=== PATIENT | female | born 1980 | race Caucasian/White ===

== ENCOUNTER 2016-05-21 04:45 | Inpatient (IN) | payer OTHER ==
[2016-05-21] VITALS (25 sets, daily range): BP systolic 89–136; BP diastolic 54–84
[~2016-05-21] VITALS: Ht 165.1 cm; Wt 77.3 kg
[~2016-05-21 04:45] MED LIST: BIRTH CONTROL PILL; ENDOCET 5-3251 EACH PO; IBUPROFEN800 MG PO; PRENATAL TABLE1 EAC3 PO
[2016-05-21 09:43] LABS: EOSINOPHIL (%) 0.3 % (0-5); HEMATOCRIT 35.8 % (36.0-46.0); IMMATURE GRANULOCYTE (%) 0.4 % (0.0-0.7); IMMATURE GRANULOCYTE COUNT 0.1 K/uL; INSTRUMENT ABS NEUTROPHIL CT 8.7 K/uL; LYMPHOCYTE COUNT 2.1 K/uL (1.0-2.8); MCH 26.6 PG (29.0-34.0); MCHC 33.2 G/DL (30.0-36.0); MCV 80.1 FL (83-99); MEAN PLAT.VOLUME 10.5 uM^3 (9.5-12.4); MONOCYTE (%) 4.5 % (3-12); MONOCYTE COUNT 0.5 K/uL (0-0.8); NEUTROPHIL (%) 76.5 % (45-76); NEUTROPHIL COUNT 8.7 K/uL (1.8-6.4); PLATELET COUNT 254 K/uL (156-360); RBC DIS.WIDTH-CV 13.2 % (11.8-14.6); RED BLOOD COUNT 4.47 M/uL (3.80-5.20); WHITE BLOOD COUNT 11.4 K/uL (4.1-10.2)
[2016-05-22] VITALS (8 sets, daily range): BP systolic 103–135; BP diastolic 54–78
[2016-05-22 08:02] LABS: EOSINOPHIL (%) 0 % (0-5); HEMATOCRIT 29.4 % (36.0-46.0); IMMATURE GRANULOCYTE (%) 0.5 % (0.0-0.7); IMMATURE GRANULOCYTE COUNT 0.1 K/uL; INSTRUMENT ABS NEUTROPHIL CT 12.5 K/uL; LYMPHOCYTE COUNT 1.8 K/uL (1.0-2.8); MCHC 33.7 G/DL (30.0-36.0); MCV 80.3 FL (83-99); MEAN PLAT.VOLUME 10.5 uM^3 (9.5-12.4); MONOCYTE (%) 6.4 % (3-12); NEUTROPHIL (%) 81.1 % (45-76); NEUTROPHIL COUNT 12.5 K/uL (1.8-6.4); PLATELET COUNT 222 K/uL (156-360); RBC DIS.WIDTH-CV 13.3 % (11.8-14.6); RBC DIS.WIDTH-SD 37.9 % (39-53); RED BLOOD COUNT 3.66 M/uL (3.80-5.20)
[2016-05-22 08:07] LABS: WHITE BLOOD COUNT 15.4 K/uL (4.1-10.2)
[2016-05-22] MEDS ORDERED: PERCOCET 5/31 TABLET PO (12:28)
[2016-05-22] MEDS ORDERED: MOTRIN800 MG PO (12:28)
[2016-05-23 03:45] VITALS: BP 102/61
[2016-05-23 07:40] VITALS: BP 116/68
[2016-05-23 16:15] VITALS: BP 122/82
[2016-05-23 22:18] VITALS: BP 124/78
[2016-05-24 07:43] VITALS: BP 104/71
[2016-05-24] MEDS ORDERED: BREAST PUMP MC (09:07)
== END 2016-05-24 16:00 | disposition home or self-care (01) | DRG 765 ==
LOC: LDRP-OP → 2WEST 04:46 → LDRP-OP 06-29 19:59
PROVIDERS: Midwife; Obstetrics & Gynecology
PROC: 10D00Z1 Extraction of Products of Conception, Low, Open Approach (ICD-10-PCS; principal; 2016-05-21)
PROC: 3E0S3BZ Introduction of Anesthetic Agent into Epidural Space, Percutaneous Approach (ICD-10-PCS; 2016-05-21)
DX: O66.41 Failed attempted vaginal birth after previous cesarean delivery (principal); D62 Acute posthemorrhagic anemia; Z37.0 Single live birth; Z3A.38 38 weeks gestation of pregnancy; O34.211 Maternal care for low transverse scar from previous cesarean delivery; O99.02 Anemia complicating childbirth; D50.8 Other iron deficiency anemias; O99.013 Anemia complicating pregnancy, third trimester
CPT/HCPCS: 85025; 86850; 86900; 86901; C1755; J0690; J1170; J2274; J2765; J3010; J7120